=== PATIENT | male | born 1970 | race Caucasian/White ===

== ENCOUNTER 2018-02-11 05:32 | Day surgery (SDC) | payer BC, OTHER ==
[~2018-02-11] VITALS: Ht 182.9 cm; Wt 92.1 kg
--- NOTE | ~2018-02-11 | O ---
[address] [address] OPERATIVE REPORT Name: ROBEL HERMOSILLO Room #: 150-1 [facility]#: [id number] Admission: 02/11/18 Attend Phys: Braden Gore MD Discharge: Date of : 66 Report #: [id number] THIS REPORT FOR: //name// CC: Braden Gore NO PCP DATE OF SERVICE: 02/11/2018 SERVICE: Orthopedics. FACILITY: [facility]. SURGEON: Braden Gore M.D. [facility]: Angie French NP INDICATIONS FOR [facility]: Extremity positioning, suture management and assistance with repair. ANESTHESIA: General with regional. COMPLICATIONS: None. DRAINS: None. SPECIMENS: None. PREOPERATIVE DIAGNOSES: 1. Left hip pain. 2. Left hip labral tear. 3. Left hip impingement syndrome. POSTOPERATIVE DIAGNOSES: 1. Left hip pain. 2. Left hip labral tear. 3. Left hip impingement syndrome. PROCEDURE: 1. Left hip arthroscopic labral repair. 2. Left hip arthroscopic extraarticular subspine acetabuloplasty. 3. Left hip arthroscopic Cam osteoplasty. 4. Left hip arthroscopic limited chondroplasty. COMPLICATIONS: None. DRAINS: None. [address] [address] OPERATIVE REPORT Name: ROBEL HERMOSILLO [facility] 150[id number] Admission: 02/11/18 Attend Phys: Braden Gore MD Discharge: Date of : 66 Report #: [id number] SPECIMENS: None. FINDINGS: 1. Acetabular labral repair with Julius CinchLock suture anchor times 2. 2. Cam and pincer lesions resected. 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 He is having pain that was progressive and persistent, was having daily discomfort. He had imaging that was consistent with a healthy appearing hip in regards to no evidence of arthritis. He had a Tonnis grade of 0, and he had an alpha angle on the preoperative imaging of 50 degrees, which was later noted to be approximately 58 degrees on intraoperative assessment with live fluoroscopy. There was an MRI arthrogram, which showed a clear acetabular labral tear, which was nondisplaced as well as no evidence of significant cartilage damage. He had failed conservative measures including rest, activity modification, cessation of sport, physical therapy, oral medicines, but continued to have pain. Symptoms lasted for greater than 6 months. Risks, benefits, alternatives and indication of surgery were discussed with him in detail. Risks include but not limited to pain, bleeding, infection, injury to nerves or blood vessels, persistent pain despite surgical intervention, failure of any repairs, progression of any preexisting chondral injury, stiffness, need for further surgery as well as complications related to anesthesia. PROCEDURE IN DETAIL: After the left lower extremity was correctly identified in the preoperative holding as operative extremity, the patient underwent placement of a single shot regional nerve block. He was then taken to the operating room where general anesthesia with LMA was induced without complication. He was padded appropriately. Prophylactic antibiotics were administered at appropriate time. Left lower extremity was prepped and draped in standard sterile fashion. After I mapped out the femoral head and neck junction under fluoroscopy by assessing his entire proximal femur morphology, I did identify a small area of Cam deformity with an alpha angle of approximately 58 degrees. Traction was applied to left leg. Total traction time was 46 minutes. A standard anterolateral as well as a mid anterior working portal were established in typical fashion. There was a significant amount of erythema present within the capsule and then along the labrum. There was clear acetabular labral tear, and there was chondral labral junction disruption at the flap of cartilage that was easily displaceable and was treated with debridement, chondroplasty. The capsule was in general inflamed and thin and friable in terms of tissue quality. [address] [address] OPERATIVE REPORT Name: ROBEL HERMOSILLO Room #: 150-1 [facility] M..#: [id number] Admission: 02/11/18 Attend Phys: Braden Gore MD Discharge: Date of : 66 Report #: [id number] This was reflected off the dorsal side of the labrum allowing visualization of the subspine region of the acetabulum, and there was noted to be a prominent amount of dense bone in this location consistent with subspine impingement. This correlated with the intraoperative x-ray in the preoperative imaging. The bur was used to recess the subspine region in an extraarticular location and then the acetabular rim was prepared for labral refixation. The Julius CinchLock suture anchors were placed time 2 in the typical fashion with good anatomic jainism of the labral position. The labrum was stable to dynamic assessment at this point and then the shaver was used to complete the debridement at the chondral labral junction. Traction was then let down. The hip was flexed and the Cam deformity was visualized. The bur was used to perform a Cam osteoplasty in a standard fashion. The transverse capsulotomy was extended slightly longitudinally to allow access distally and then the longitudinal limb of the capsulotomy was closed with #2 Vicryl and the remaining portion of the transverse capsulotomy was closed with #2 Vicryl times 3. Instruments were removed. Final x-rays were taken. Portal sites were closed with a deep followed by superficial Monocryl stitch. Sterile dressing was applied. The patient was awakened from anesthesia and taken to recovery room in stable condition. There were no complications. All counts were reported correct. <ELECTRONICALLY SIGNED> By: Braden Gore MD 02/11/18 [id number] [id number] Braden Gore MD /nt
[~2018-02-11 05:32] MED LIST: EXCEDRIN CAPLE1 EACH PO; MULTI VITAMIN1 EACH PO; PERCOCET PO; XANAX 0.5 MG0.5 MG PO
[2018-02-11 07:50] VITALS: BP 129/92
[2018-02-11 10:38] VITALS: BP 129/92
== END 2018-02-11 11:05 | disposition home or self-care (01) ==
LOC: OR 05:32 → TBA 05:33 → OR 10:38
DX: S73.102A Unspecified sprain of left hip, initial encounter (principal); M25.852 Other specified joint disorders, left hip; K21.9 Gastro-esophageal reflux disease without esophagitis; Z98.890 Other specified postprocedural states; Z79.899 Other long term (current) drug therapy; X58.XXXA Exposure to other specified factors, initial encounter; Y93.89 Activity, other specified; Y92.89 Other specified places as the place of occurrence of the external cause; Y99.8 Other external cause status
CPT/HCPCS: 50010; 50101; 50386; 51038; 51538; 56524; 56527; 57092; 62110; 62900; 64037; 64041; 70005